=== PATIENT | male | born 1970 | race American Indian/Alaskan Native ===

== ENCOUNTER 2017-02-12 12:06 | Inpatient (IN) | payer OTHER ==
[2017-02-12] MEDS ORDERED: MORPHINE IV PRN (12:30)
[2017-02-12] MEDS ORDERED: ZOFRAN IV PRN (12:30)
[2017-02-12] MEDS ORDERED: TYLENOL PO PRN (12:30)
[2017-02-12 16:17] LABS: Basophils % (Auto) 0.4 % (0.0-1.8); Eosinophils % (Auto) 0.3 % (0.0-4.3); Hematocrit 46.5 % (35.5-45.6); Hemoglobin 15.7 gm/dl (11.8-15.2); Mean Corpuscular HGB Conc 34 % (32-34); Mean Corpuscular Hemoglobin 31 pg (28-32); Mean Corpuscular Volume 91 fl (84-94); Platelet Count 238 K/mm3 (140-440); Red Blood Count 5.12 M/mm3 (3.65-5.03); Red Cell Distribution Width 13.7 % (13.2-15.2); White Blood Count 4.6 K/mm3 (4.5-11.0)
[2017-02-12 16:22] LABS: Alanine Aminotransferase 23 units/L (7-56); Albumin 4.2 g/dL (3.9-5); Albumin/Globulin Ratio 1.1 %; Alkaline Phosphatase 80 units/L (35-129); Anion Gap 20 mmol/L; BUN/Creatinine Ratio 13.75; Blood Urea Nitrogen 11 mg/dL (9-20); Calcium 9.2 mg/dL (8.4-10.2); Carbon Dioxide 23 mmol/L (22-30); Chloride 99.7 mmol/L (98-107); Glucose 135 mg/dL (75-100); Potassium 3.9 mmol/L (3.6-5.0); Sodium 139 mmol/L (137-145)
[2017-02-12 16:27] LABS: INR 0.94 (0.87-1.13); Partial Thromboplastin Time 27.4 Sec. (24.2-36.6)
[2017-02-12] MEDS: PROTONIX IV SCH (17:24)
[2017-02-12] MEDS: NACL 0.9% 1000 ML 1,000 ML IV SCH (17:24)
--- NOTE | 2017-02-12 19:33 | History and Physical Report ---
History of Present Illness Date of examination: 02/12/17 Date of admission: 02/12/17 15:15 Chief complaint: Bright red blood per rectum, abdominal pain, fatigue History of present illness: Patient is a 46-year-old gentleman who presented to my office today with a 4- day history of bright red blood per rectum. This was associated with lower abdominal pain, and fatigue. Was progressively getting worse. Blood loss was about 5-10 ounces with pictures in his i-Phone. Direct admission was requested. Has dull lower abdominal pain that is nonradiating. No known aggravating or relieving factors. Denies any nausea no vomiting. No weight loss. Denies any alteration in bowel habits. No chest pain or shortness of breath. Endorses fever that lasted for a 2 days. However has resolved with OTC tylenol. Has similar BRBPR many months ago. Presented to my office then. Was given a GI referral and some medications at a time. Was not sure what happened with his referral. Patient traveled to [facility] about 10 days ago. Did not feel sick during the trip or immediately on returning. Past History Past Medical History: other (cataract status post recent cataract extraction) Past Surgical History: Other (cataract extraction ) Social history: . denies: smoking, alcohol abuse, prescription drug abuse, IV drug use Medications and Allergies Allergies Allergy/AdvReac Type Severity Reaction Status Date / Time No Known Allergies Allergy Unverified 02/12/17 12:29 Home Medications Medication Instructions Recorded Confirmed Last Taken Type Ketorolac Tromethamin 0.4%(Nf) 1 drop OP BID 02/12/17 02/12/17 02/12/17 08:00 History [Acular Ls 0.4% Ophth Yolanda] Ofloxacin 0.3% [Floxin Otic] 5 ml OU BID 02/12/17 02/12/17 02/12/17 08:00 History prednisoLONE ACETATE [Omnipred 1% 5 ml OU BID 02/12/17 02/12/17 02/12/17 08:00 History Eye Drops] Active Meds: Active Medications Acetaminophen (Tylenol) 500 mg PO Q6H PRN PRN Reason: Fever >101 Sodium Chloride (Nacl 0.9% 1000 Ml) 1,000 mls @ 150 mls/hr IV DIRECT CAMILA Last Admin: 02/12/17 17:24 Dose: 150 mls/hr Morphine Sulfate (Morphine) 2 mg IV Q4H PRN PRN Reason: Pain, Moderate (4-6) Ondansetron HCl (Zofran) 4 mg IV Q6H PRN PRN Reason: Nausea And Vomiting Pantoprazole Sodium (Protonix) 40 mg IV DAILY CAMILA Last Admin: 02/12/17 17:24 Dose: 40 mg Review of Systems Constitutional: fever, no weight loss, no weight gain, no chills, no sweats, no anorexia, no fatigue Ears, nose, mouth and throat: no ear pain, no ear discharge, no tinnitis, no decreased hearing Cardiovascular: no chest pain, no orthopnea, no palpitations Respiratory: no cough, no cough with sputum, no excessive sputum Gastrointestinal: abdominal pain, BRBPR, hematochezia, no nausea, no vomiting, no diarrhea Genitourinary Male: no dysuria, no hematuria, no flank pain Rectal: no pain, no incontinence Integumentary: no rash, no pruritis, no redness Neurological: no head injury, no transient paralysis, no paralysis, no weakness Psychiatric: no memory loss, no change in sleep habits, no sleep disturbances, no insomnia Endocrine: no cold intolerance, no heat intolerance, no polyphagia, no excessive thirst Hematologic/Lymphatic: no easy bruising, no easy bleeding Allergic/Immunologic: no urticaria Exam - Constitutional Vitals: Temp Pulse Resp BP Pulse Ox 98.9 F 87 18 115/74 95 02/12/17 15:30 02/12/17 15:30 02/12/17 15:30 02/12/17 15:30 02/12/17 15:30 General appearance: Present: no acute distress, well-nourished - EENT Eyes: Present: PERRL - Neck Neck: Present: supple, normal ROM - Respiratory Respiratory effort: normal Respiratory: bilateral: CTA - Cardiovascular Heart Sounds: Present: S1 & S2. Absent: rub, click - Extremities Extremities: pulses symmetrical, No edema Peripheral Pulses: within normal limits - Abdominal General gastrointestinal: Present: soft, non-tender - Integumentary Integumentary: Present: clear, warm, dry - Musculoskeletal Musculoskeletal: gait normal, strength equal bilaterally - Psychiatric Psychiatric: appropriate mood/affect, intact judgment & insight - Neurologic Neurologic: CNII-XII intact, moves all extremities Results - Labs CBC & Chem 7: 02/12/17 15:33 02/12/17 15:33 Labs: Abnormal lab results 02/12/17 02/12/17 Range/Units 15:33 15:33 RBC 5.12 H (3.65-5.03) M/mm3 Hgb 15.7 H (11.8-15.2) gm/dl Hct 46.5 H (35.5-45.6) % [place] % (Auto) 8.0 H (0.0-7.3) % Glucose 135 H (75-100) mg/dL Assessment and Plan Assessment 1. GI bleeding with Bright red blood per rectum 2. Lower abdominal pain 3. Fatigue 4. Hyperglycemia Plan Admit CBC, CMP and PT/PTT INR Mg and a phosphorus, A1c Serial H&H, CT scan of abdomen and pelvis IV Protonix Nothing by mouth. GI consult. DVT prophylaxis with SCDs. Avoid anticoagulation because of GI bleeding Dr Turcios to cover for me from 02/12/15 - 01/30/24
[2017-02-13] MEDS: NACL 0.9% 1000 ML 1,000 ML IV SCH ×4 (00:24→22:57)
[2017-02-13 00:26] LABS: Hematocrit 41.9 % (35.5-45.6); Hemoglobin 14.1 gm/dl (11.8-15.2)
[2017-02-13] MEDS ORDERED: NACL ONE (02:56)
--- NOTE | 2017-02-13 06:10 | Cat Scan Report ---
FINAL REPORT PROCEDURE: CT ABDOMEN PELVIS WO/W CON TECHNIQUE: Computerized axial tomography of the abdomen and pelvis was performed after the IV injection of iodinated nonionic contrast. HISTORY: abdominal pain and BRBPR COMPARISON: No prior studies are available for comparison. FINDINGS: Visualized lower thorax: Mild atelectasis bilateral lower lungs. Liver: Normal size and attenuation. Spleen: Normal size and attenuation. Gallbladder and biliary system: Normal. Pancreas: Normal. Adrenals: Normal. Kidneys: Both kidneys have normal size. No hydronephrosis. No renal stones or masses. GI tract: The stomach is normal. The small bowel has a normal caliber. No obstruction, ileus or enteritis. The cecum and appendix are normal. There is some bowel wall thickening involving the descending and sigmoid colon. Colitis in this area is suspected. No complication.. Lymph nodes and mesentery: Normal. Vasculature: Normal. Bladder: Normal. Reproductive organs: Normal. Peritoneum: No free fluid. Musculoskeletal structures: No significant abnormality. Other: None. IMPRESSION: There is no evidence of intestinal or urinary tract obstruction. There is some bowel wall thickening involving the descending and sigmoid colon, in area of colitis is suspected this region. No complication. The appendix appears normal.
--- NOTE | 2017-02-13 06:50 | Progress Note ---
Assessment and Plan Assessment 1. GI bleeding with Bright red blood per rectum with positive Hemocult in the office 2. Lower abdominal pain 3. Fatigue 4. Diabeteds mellitus with A1c of 6.5% Plan Admit CBC, CMP and PT/PTT INR Mg and a phosphorus, A1c Serial H&H, CT scan of abdomen and pelvis IV Protonix Nothing by mouth and Consistent CHO diet thereafter GI consult. DVT prophylaxis with SCDs. Avoid anticoagulation because of GI bleeding SSI Subjective Date of service: 02/13/17 Principal diagnosis: Gi bleeding, abdominal pain and weakness Interval history: still having abdominal pain though less. No BM and no has not notice any blood Objective - Constitutional Vitals: Vital Signs - 12hr 02/13/17 00:00 Temperature 98.2 F Pulse Rate [ 62 Right Radial] Respiratory 16 Rate Blood Pressure 91/56 [Right Arm] O2 Sat by Pulse 96 Oximetry General appearance: Present: no acute distress, well-nourished - EENT Eyes: PERRL, EOM intact - Neck Neck: supple, normal ROM - Respiratory Respiratory effort: normal Respiratory: bilateral: CTA - Cardiovascular Rhythm: regular Heart Sounds: Present: S1 & S2. Absent: gallop, rub Extremities: pulses intact, No edema, normal color, Full ROM - Gastrointestinal General gastrointestinal: Present: soft, non-tender, non-distended, normal bowel sounds - Integumentary Integumentary: clear, warm, dry - Musculoskeletal Musculoskeletal: 1, strength equal bilaterally - Neurologic Neurologic: moves all extremities - Psychiatric Psychiatric: memory intact, appropriate mood/affect, intact judgment & insight - Labs CBC & Chem 7: 02/12/17 22:53 02/12/17 15:33 Labs: Abnormal lab results 02/12/17 02/12/17 02/12/17 Range/Units 15:33 15:33 15:33 RBC 5.12 H (3.65-5.03) M/mm3 Hgb 15.7 H (11.8-15.2) gm/dl Hct 46.5 H (35.5-45.6) % [place] % (Auto) 8.0 H (0.0-7.3) % Glucose 135 H (75-100) mg/dL Hemoglobin A1c 6.5 H (4-6) %
[2017-02-13 06:52] LABS: Basophils % (Auto) 0.6 % (0.0-1.8); Eosinophils % (Auto) 1.1 % (0.0-4.3); Hematocrit 43.2 % (35.5-45.6); Hemoglobin 14.3 gm/dl (11.8-15.2); Mean Corpuscular HGB Conc 33 % (32-34); Mean Corpuscular Hemoglobin 31 pg (28-32); Mean Corpuscular Volume 92 fl (84-94); Platelet Count 210 K/mm3 (140-440); Red Cell Distribution Width 13.6 % (13.2-15.2); White Blood Count 3.8 K/mm3 (4.5-11.0)
[2017-02-13 07:39] LABS: Albumin 3.7 g/dL (3.9-5); Albumin/Globulin Ratio 1.3 %; Alkaline Phosphatase 68 units/L (35-129); Anion Gap 18 mmol/L; Blood Urea Nitrogen 10 mg/dL (9-20); Calcium 8.2 mg/dL (8.4-10.2); Carbon Dioxide 25 mmol/L (22-30); Chloride 102.1 mmol/L (98-107); Glucose 117 mg/dL (75-100); Potassium 3.9 mmol/L (3.6-5.0); Sodium 141 mmol/L (137-145); Total Protein 6.6 g/dL (6.3-8.2)
[2017-02-13 08:57] LABS: Alanine Aminotransferase 22 units/L (7-56)
[2017-02-13] MEDS: PROTONIX IV SCH (09:19)
[2017-02-13 11:24] LABS: Hematocrit 44.5 % (35.5-45.6); Hemoglobin 14.9 gm/dl (11.8-15.2)
[2017-02-13] MEDS ORDERED: GOLYTELY PO ONE (17:33)
--- NOTE | 2017-02-13 17:38 | Gastroenterology Consultation ---
History of Present Illness - Reason for Consult Consult date: 02/13/17 GI Bleed Requesting physician: QUETA MARQUES - History of Present Illness The patient is a 46 yo male with no hx of GI bleeding admitted with a 24 hour hx of acute GI bleeding. He has no hx of this in the past, though he did get a colonoscopy about "10 years ago" [place] that [place]. This was because he had some vague abdominal cramps. This time, there was no severe abdominal pain, irregular bowels, or N/V/abnormal loss of weight. The patient denies blood thinners. There is no family hx of GI cancer, but his mother had breast cancer. He has no CP or SOB, and denies any exertional symptoms. He has had no abdominal surgery, and he denies a hx of straining at the stool. Past History Past Medical History: other (cataract status post recent cataract extraction) Past Surgical History: Other (cataract extraction ) Social history: . denies: smoking, alcohol abuse, prescription drug abuse, IV drug use Family history: cancer (Breast cancer:mother) Medications and Allergies Allergies Allergy/AdvReac Type Severity Reaction Status Date / Time No Known Allergies Allergy Unverified 02/12/17 12:29 Home Medications Medication Instructions Recorded Confirmed Last Taken Type Ketorolac Tromethamin 0.4%(Nf) 1 drop OP BID 02/12/17 02/12/17 02/12/17 08:00 History [Acular Ls 0.4% Ophth Yolanda] Ofloxacin 0.3% [Floxin Otic] 5 ml OU BID 02/12/17 02/12/17 02/12/17 08:00 History prednisoLONE ACETATE [Omnipred 1% 5 ml OU BID 02/12/17 02/12/17 02/12/17 08:00 History Eye Drops] Active Meds: Active Medications Acetaminophen (Tylenol) 500 mg PO Q6H PRN PRN Reason: Fever >101 Sodium Chloride (Nacl 0.9% 1000 Ml) 1,000 mls @ 150 mls/hr IV DIRECT CAMILA Last Admin: 02/13/17 15:26 Dose: 150 mls/hr Morphine Sulfate (Morphine) 2 mg IV Q4H PRN PRN Reason: Pain, Moderate (4-6) Ondansetron HCl (Zofran) 4 mg IV Q6H PRN PRN Reason: Nausea And Vomiting Pantoprazole Sodium (Protonix) 40 mg IV DAILY CAMILA Last Admin: 02/13/17 09:19 Dose: 40 mg Review of Systems - Review of Systems All systems: negative (as noted in the HPI.) Exam - Constitutional Vital Signs: Temp Pulse Resp BP Pulse Ox 98.2 F 60 18 104/71 100 02/13/17 15:43 02/13/17 15:43 02/13/17 15:43 02/13/17 15:43 02/13/17 15:43 General appearance: no acute distress - EENT Eyes: PERRL, EOM intact ENT: hearing intact, clear oral mucosa - Neck Neck: supple, normal ROM - Respiratory Respiratory effort: normal Respiratory: bilateral: CTA - Cardiovascular Rhythm: regular Heart Sounds: Present: S1 & S2 Extremities: no ischemia, No edema - Gastrointestinal General gastrointestinal: Present: soft, non-tender, non-distended - Integumentary Integumentary: Present: clear, warm, dry - Neurologic Neurological: alert and oriented x3 - Labs CBC & Chem 7: 02/13/17 10:22 02/13/17 05:53 Lab Results: Laboratory Results - last 24 hr 02/12/17 02/12/17 02/13/17 15:33 22:53 05:53 WBC 3.8 L RBC 4.70 Hgb 14.1 14.3 Hct 41.9 43.2 MCV 92 MCH 31 MCHC 33 RDW 13.6 Plt Count 210 Lymph % (Auto) 49.1 H [place] % (Auto) 12.2 H Eos % (Auto) 1.1 Baso % (Auto) 0.6 Lymph # 1.9 [place] # 0.5 Eos # 0.0 Baso # 0.0 Seg Neutrophils % 37.0 L Seg Neutrophils # 1.4 L Sodium Potassium Chloride Carbon Dioxide Anion Gap BUN Creatinine Estimated GFR BUN/Creatinine Ratio Glucose Hemoglobin A1c 6.5 H Calcium Total Bilirubin AST ALT Alkaline Phosphatase Total Protein Albumin Albumin/Globulin Ratio 02/13/17 02/13/17 05:53 10:22 WBC RBC Hgb 14.9 Hct 44.5 MCV MCH MCHC RDW Plt Count Lymph % (Auto) [place] % (Auto) Eos % (Auto) Baso % (Auto) Lymph # [place] # Eos # Baso # Seg Neutrophils % Seg Neutrophils # Sodium 141 Potassium 3.9 Chloride 102.1 Carbon Dioxide 25 Anion Gap 18 BUN 10 Creatinine 1.0 Estimated GFR > 60 BUN/Creatinine Ratio 10.00 Glucose 117 H Hemoglobin A1c Calcium 8.2 L Total Bilirubin 0.30 AST 19 ALT 22 Alkaline Phosphatase 68 Total Protein 6.6 Albumin 3.7 L Albumin/Globulin Ratio 1.3 Assessment and Plan - Patient Problems (1) Acute GI hemorrhage Current Visit: Yes Status: Acute Plan to address problem: - No melena or elevated BUN to suggest an upper source. - Will plan colonoscopy after bowel prep. - Risks/benefits of the procedure discussed with the patient. - Further recs after endoscopy.
[2017-02-14] MEDS: NACL 0.9% 1000 ML 1,000 ML IV SCH (05:33)
--- NOTE | 2017-02-14 06:28 | Progress Note ---
Assessment and Plan Assessment 1. GI bleeding with Bright red blood per rectum with positive Hemocult in the office. for endoscopy today 2. Lower abdominal pain 3. Fatigue 4. Diabeteds mellitus with A1c of 6.5% 5. Colitis involvingthe descentidng an sigmod colon per CT abdomen Plan iv pepcid For endoscopy today Nothing by mouth and Consistent CHO diet thereafter GI following DVT prophylaxis with SCDs. Avoid anticoagulation because of GI bleeding SSI Subjective Date of service: 02/14/17 Principal diagnosis: Gi bleeding, abdominal pain and weakness Interval history: Abdominal pain resolving. No BM and has not notice any blood Objective - Constitutional Vitals: Vital Signs - 12hr 02/13/17 23:00 Temperature 98.6 F Pulse Rate [ 55 L Right Radial] Respiratory 16 Rate Blood Pressure 117/74 [Right Arm] O2 Sat by Pulse 98 Oximetry General appearance: Present: no acute distress, well-nourished - EENT Eyes: PERRL, EOM intact - Neck Neck: supple, normal ROM - Respiratory Respiratory effort: normal Respiratory: bilateral: CTA - Cardiovascular Rhythm: regular Heart Sounds: Present: S1 & S2. Absent: gallop, rub Extremities: pulses intact, No edema, normal color, Full ROM - Gastrointestinal General gastrointestinal: Present: soft, non-tender, non-distended, normal bowel sounds - Integumentary Integumentary: clear, warm, dry - Musculoskeletal Musculoskeletal: 1, strength equal bilaterally - Neurologic Neurologic: moves all extremities - Psychiatric Psychiatric: memory intact, appropriate mood/affect, intact judgment & insight - Labs CBC & Chem 7: 02/13/17 10:22 02/13/17 05:53 Labs: Abnormal lab results 02/13/17 02/13/17 Range/Units 05:53 05:53 WBC 3.8 L (4.5-11.0) K/mm3 Lymph % (Auto) 49.1 H (13.4-35.0) % [place] % (Auto) 12.2 H (0.0-7.3) % Seg Neutrophils % 37.0 L (40.0-70.0) % Seg Neutrophils # 1.4 L (1.8-7.7) K/mm3 Glucose 117 H (75-100) mg/dL Calcium 8.2 L (8.4-10.2) mg/dL Albumin 3.7 L (3.9-5) g/dL
[2017-02-14] MEDS ORDERED: WATER FOR IRRIG STERILE IR ONE (06:55)
[2017-02-14] MEDS ORDERED: WATER FOR IRRIG STERILE ONE (06:56)
[2017-02-14] MEDS ORDERED: NACL 0.9% 1000 ML 1,000 ML ONE (07:18)
[2017-02-14 08:35] LABS: Anion Gap 18 mmol/L; BUN/Creatinine Ratio 6.66; Blood Urea Nitrogen 6 mg/dL (9-20); Calcium 8.1 mg/dL (8.4-10.2); Carbon Dioxide 24 mmol/L (22-30); Chloride 104.4 mmol/L (98-107); Glucose 102 mg/dL (75-100); Sodium 142 mmol/L (137-145)
[2017-02-14] MEDS ORDERED: DIPRIVAN 10 MG/ML IV ONE ×2 (09:16)
--- NOTE | 2017-02-14 09:31 | Anesthesia Consultation ---
Anesthesia Consult and Med Hx Date of service: 02/14/17 - Airway Anesthetic Teeth Evaluation: Good ROM Head & Neck: Adequate Mental/Hyoid Distance: Adequate Mallampati Class: Class II Intubation Access Assessment: Probably Good - Pulmonary Exam CTA: Yes - Cardiac Exam Cardiac Exam: RRR - Pre-Operative Health Status ASA Pre-Surgery Classification: ASA1 Proposed Anesthetic Plan: MAC - Additional Comments Anesthesia Medical History Comments: on no meds, drops for cataract surgery done a few days ago
--- NOTE | 2017-02-14 09:32 | Anesthesia Day of Surgery ---
Anesthesia Day of Surgery - Day of Surgery Patient Examined: Yes Patient H&P Reviewed: Yes Patient is NPO: Yes
[2017-02-14] MEDS: PROTONIX IV SCH (09:54)
--- NOTE | 2017-02-14 10:00 | Post Operative Note ---
Pre-op diagnosis: Rectal bleeding Post-op diagnosis: other (polyp, hemorrhoids) Findings: 1. 2mm asc colon polyp, cold snare 2. Grade I Int Hemorrhoids 3. Fair prep with some liquid brown stool Procedure: Colonoscopy with cold snare Anesthesia: MAC Surgeon: SIERRA BERRIOS Estimated blood loss: minimal Pathology: list (1. Ascending colon polyp) Specimen disposition: to lab Condition: stable Disposition: floor (Recs: 1. Repeat colonoscopy based on colon polyp pathology. 2. F/U in clinic in 8 weeks/OK to discharge home today. 3. Topical care of hemorrhoids as needed.)
--- NOTE | 2017-02-14 10:15 | Post Anesthesia Evaluation ---
- Post Anesthesia Evaluation Patient Participated: Yes Airway Patent: Yes Stable Respiratory Function: Yes Temp > 96.8F: Yes Pain Manageable: Yes Adequeate Hydration: Yes Anesthesia Complications: No Block Receding Appropriately: Not Applicable
--- NOTE | 2017-02-15 02:55 | Operative Report ---
PROCEDURE PERFORMED: Colonoscopy with cold snare polypectomy. PREOPERATIVE DIAGNOSIS: Rectal bleeding. POSTOPERATIVE DIAGNOSIS: Colon polyp and hemorrhoids. ENDOSCOPIST: Abebe Franks M.D. INSTRUMENT: PowerPot video endoscope. MEDICATIONS: MAC anesthesia by [facility]. COMPLICATIONS: No apparent complications. ESTIMATED BLOOD LOSS: Minimal. SPECIMENS: Ascending colon polyp. IMPLANTS: None. MOCK UP BUILDER: None. CONDITION AT COMPLETION: Stable. TECHNIQUE: The patient was informed of the risks and benefits of the procedure. He signed the informed consent to proceed. He was placed in left lateral decubitus position. The above sedative medications were given. His vital signs remained stable throughout the procedure. The instrument was advanced from the anus to the cecum under direct visualization. The cecum was identified by the appendiceal orifice and the ileocecal valve. At that point, the bowel was insufflated and the endoscope was slowly withdrawn. The quality of preparation was fair where there was some liquid brown stool present that was lavaged as possible. FINDINGS: 1. Fair prep with some liquid brown stool, lavaged. 2. A 2 mm ascending colon polyp, removed with cold snare polypectomy. 3. Grade 1 internal hemorrhoids. RECOMMENDATIONS: 1. Repeat colonoscopy based on colon polyp pathology. 2. Follow up in clinic in 8 weeks. 3. Okay to discharge the patient home today. 4. Topical care of hemorrhoids as needed. JOB# [id number] AURELIO/NTS
[2017-02-15 08:40] VITALS: BP 106/74
--- NOTE | 2017-02-15 09:10 | Discharge Summary ---
Providers - Providers Date of Admission: 02/12/17 15:15 Date of discharge: 02/15/17 Attending physician: QUETA MARQUES 02/12/17 12:30 Consult to Physician [CONS] Routine Consulting Provider: FAIZAN ROBERTSON Reason For Exam: HEMATOCHEZIA, ABD PAIN Place consult to:: DR. ROBERTSON Notified:: OFFICE Phone number called:: [phone] Was contact made?: Yes If yes, spoke with:: LEIF Time called:: 16:15 Comment:: HELGA NOTIFIED Primary care physician: QUETA MARQUES Hospitalization Reason for admission: gi bleeding Pertinent studies: CT abdomen Procedures: Colonoscopy with colonic poly and internal hemorrhoid grade 1 found Hospital course: Pt is a 46 y/o male who presented to my offcie with bright red blood per rctum associated with abdominal pain. CT of the abdomen was suspecious for colitis of the ddscending and sigmoid colon. Gi consult was obtained. Colonoscopy done. Findings remarkable for interenal hemorrhoid, colonic poly. Gi bleeding resolved. Abdominal painresolved. Pt d/[place] today 02/15/17 to f/u with me in 3-5 days Disposition: DC-01 TO HOME OR SELFCARE Time spent for discharge: 35 min Core Measure Documentation - Palliative Care Palliative Care/ Comfort Measures: Not Applicable - Core Measures Any of the following diagnoses?: none Exam - Constitutional Vitals: Temp Pulse Resp BP Pulse Ox 98.8 F 76 18 106/74 98 02/15/17 08:37 02/15/17 08:37 02/15/17 08:37 02/15/17 08:37 02/15/17 08:37 General appearance: Present: no acute distress, well-nourished - EENT Eyes: Present: PERRL ENT: hearing intact, clear oral mucosa - Neck Neck: Present: supple, normal ROM - Respiratory Respiratory effort: normal Respiratory: bilateral: CTA - Cardiovascular Heart Sounds: Present: S1 & S2. Absent: rub, click - Extremities Extremities: pulses symmetrical, No edema Peripheral Pulses: within normal limits - Abdominal General gastrointestinal: Present: soft, non-tender, non-distended, normal bowel sounds - Integumentary Integumentary: Present: clear, warm, dry - Musculoskeletal Musculoskeletal: gait normal, strength equal bilaterally - Psychiatric Psychiatric: appropriate mood/affect, intact judgment & insight - Neurologic Neurologic: CNII-XII intact, moves all extremities Plan Activity: advance as tolerated Follow up with: QUETA MARQUES MD [Primary Care Provider] - 3 Days
== END 2017-02-15 10:29 | disposition home or self-care (01) | DRG 392 ==
LOC: UNDOADMIN 12:06 → 3A 12:06
PROVIDERS: ADMIT Family Medicine; ATTEND Family Medicine
PROC: 3E1H88Z Irrigation of Lower GI using Irrigating Substance, Via Natural or Artificial Opening Endoscopic (ICD-10-PCS; principal; 2017-02-14)
PROC: 0DBK8ZZ Excision of Ascending Colon, Via Natural or Artificial Opening Endoscopic (ICD-10-PCS; principal; 2017-02-14)
DX: K52.9 Noninfective gastroenteritis and colitis, unspecified (principal); K62.5 Hemorrhage of anus and rectum; K64.0 First degree hemorrhoids; Z98.49 Cataract extraction status, unspecified eye; K63.5 Polyp of colon; E11.65 Type 2 diabetes mellitus with hyperglycemia
CPT/HCPCS: 36415; 74178; 80048; 80053; 83036; 83735; 84100; 85014; 85018; 85025; 85610; 85730; 86850; 86900; 86901; 88305; C9113; J2704; J7030; Q9967

== ENCOUNTER 2018-12-16 09:44 | Emergency (ER) | payer OTHER ==
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
--- NOTE | 2018-12-16 12:29 | XRay Report ---
LUMBOSACRAL SPINE, 3 VIEWS: History: Back pain Findings: The vertebral bodies, disk spaces and posterior elements are intact. No compression deformity or malalignment. The SI joints are symmetric and unremarkable. Impression: 1. No evidence for acute injury to the lumbar spine.
--- NOTE | 2018-12-16 12:30 | XRay Report ---
CERVICAL SPINE, 3 views: History: Neck pain. Findings: The vertebral bodies, disk spaces, posterior elements and prevertebral soft tissues are intact. The dens is intact. No acute fracture or malalignment is identified. Advanced degenerative disc disease is noted at C6-7. There is a large calcification measuring up to 3 cm and the left submandibular region. Salivary stone? Impression: Cervical spondylosis. No evidence for acute injury to the cervical spine. Large left submandibular stone?
[2018-12-16 13:19] VITALS: BP 116/74
== END 2018-12-16 13:18 | disposition home or self-care (01) ==
LOC: ED 09:44
DX: S39.012A Strain of muscle, fascia and tendon of lower back, initial encounter (principal); S16.1XXA Strain of muscle, fascia and tendon at neck level, initial encounter; V49.49XA Driver injured in collision with other motor vehicles in traffic accident, initial encounter; Y93.89 Activity, other specified; Y92.89 Other specified places as the place of occurrence of the external cause; Y99.8 Other external cause status
CPT/HCPCS: 72040; 72100